=== PATIENT | male | born 1965 | race Caucasian/White ===

== ENCOUNTER 2024-03-02 12:06 | Emergency (ER) | payer OTHER ==
[2024-03-02 13:00] VITALS: TEMP 98.1
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
[2024-03-02] MEDS: LORazepam 2 MG/ML INJ IV STA (13:36)
[2024-03-02] MEDS: ONDANSETRON 4 MG/2 ML VIAL IVP STA (13:41)
[2024-03-02] MEDS: SODIUM CHLORIDE 0.9% 1,000 ML IV STA (13:43)
[2024-03-02 13:52] LABS: Basophils % (A) 0 %; Eosinophils # (A) 0.1 k/uL (0-0.7); Eosinophils % (A) 2 %; HCT 52.1 % (39.0-53.0); HGB 17.2 gm/dL (13.0-17.5); Lymphocytes # (A) 1.3 k/uL (1.0-4.8); Lymphocytes % (A) 20 %; MCHC 32.9 g/dL (31.0-37.0); MCV 91.2 fL (80.0-100.0); Mean Platelet Volume 7.8; Monocytes # (A) 0.3 k/uL (0-1.0); Monocytes % (A) 4 %; Neutrophils # (A) 4.6 k/uL (1.3-7.7); Neutrophils % (A) 71 %; Platelet Count 116 k/uL (150-450); RBC 5.72 m/uL (4.30-5.90); RDW 12.7 % (11.5-15.5); WBC 6.4 k/uL (3.8-10.6)
[2024-03-02 14:01] LABS: African American GFR (CKD) >90 (>60 ml/min/1.73 sqM); Anion Gap 12 mmol/L; Blood Urea Nitrogen 19 mg/dL (9-20); Calcium 9.7 mg/dL (8.4-10.2); Carbon Dioxide 17 mmol/L (22-30); Chloride 107 mmol/L (98-107); Glucose 270 mg/dL (74-99); Non-African American GFR(CKD) >90 (>60 ml/min/1.73 sqM); Sodium 136 mmol/L (137-145)
[2024-03-02 14:03] LABS: Potassium 4.6 mmol/L (3.5-5.1)
[2024-03-02] MEDS: LORazepam 0.5 MG TAB PO STA (15:14)
[2024-03-02 15:15] VITALS: BP 161/84; PULSE 77; RESP 16
== END 2024-03-02 15:28 | disposition home or self-care (01) ==
LOC: EC 12:06
DX: F41.9 Anxiety disorder, unspecified (principal)
CPT/HCPCS: 36415; 80048; 85025; 93005; 96374; 96375; 99283

== ENCOUNTER 2024-08-01 09:15 | Emergency (ER) | payer OTHER ==
[2024-08-01 09:21] VITALS: TEMP 97.3
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
[2024-08-01] MEDS: KETOROLAC 15 MG/ML 1 ML VIAL IVP STA (10:01)
[2024-08-01] MEDS: LORazepam 2 MG/ML INJ IV STA (10:02)
[2024-08-01 11:07] VITALS: BP 159/77; PULSE 65; RESP 20
== END 2024-08-01 11:12 | disposition home or self-care (01) ==
LOC: EC 09:15
DX: F41.9 Anxiety disorder, unspecified (principal)
CPT/HCPCS: 99283; 96374; 96375; J2060; J1885

== ENCOUNTER 2024-08-01 13:09 | Emergency (ER) | payer OTHER ==
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
[2024-08-01] MEDS: LORazepam 2 MG/ML INJ IV STA (15:59)
[2024-08-01] MEDS: ONDANSETRON 4 MG/2 ML VIAL IVP STA (15:59)
[2024-08-01] MEDS: SODIUM CHLORIDE 0.9% 1,000 ML IV STA (15:59)
[2024-08-01 16:09] LABS: Basophils % (A) 0 %; Eosinophils # (A) 0.1 k/uL (0-0.7); Eosinophils % (A) 1 %; HGB 16.9 gm/dL (13.0-17.5); Lymphocytes # (A) 0.9 k/uL (1.0-4.8); Lymphocytes % (A) 15 %; MCH 29.7 pg (25.0-35.0); MCHC 32.5 g/dL (31.0-37.0); MCV 91.5 fL (80.0-100.0); Mean Platelet Volume 8.7; Monocytes # (A) 0.3 k/uL (0-1.0); Monocytes % (A) 4 %; Neutrophils # (A) 4.8 k/uL (1.3-7.7); Neutrophils % (A) 78 %; RBC 5.68 m/uL (4.30-5.90); RDW 12.9 % (11.5-15.5); WBC 6.1 k/uL (3.8-10.6)
[2024-08-01 16:18] LABS: ALT 48 U/L (4-49); AST 32 U/L (17-59); African American GFR (CKD) >90 (>60 ml/min/1.73 sqM); Albumin 4.8 g/dL (3.5-5.0); Alkaline Phosphatase 86 U/L (38-126); Anion Gap 12 mmol/L; Blood Urea Nitrogen 23 mg/dL (9-20); Calcium 9.7 mg/dL (8.4-10.2); Carbon Dioxide 22 mmol/L (22-30); Chloride 103 mmol/L (98-107); Glucose 196 mg/dL (74-99); Non-African American GFR(CKD) >90 (>60 ml/min/1.73 sqM); Potassium 4.3 mmol/L (3.5-5.1); Sodium 137 mmol/L (137-145); Total Bilirubin 1.4 mg/dL (0.2-1.3); Total Protein 7.9 g/dL (6.3-8.2)
[2024-08-01 16:40] VITALS: BP 182/82; PULSE 64; RESP 18; TEMP 97.5
[2024-08-01 16:59] LABS: Platelet Count 95 k/uL (150-450)
== END 2024-08-01 18:02 | disposition home or self-care (01) ==
LOC: EC 13:09
DX: F41.9 Anxiety disorder, unspecified (principal)
CPT/HCPCS: 36415; 93005; 80053; 83605; 83735; 85025; 99284; 96374; 96375; 96361; J2060; J2405

== ENCOUNTER 2024-08-27 09:51 | Emergency (ER) | payer OTHER ==
[2024-08-27 10:00] VITALS: RESP 18; TEMP 97.5
[2024-08-27 10:05] LABS: Glucose,Whole Blood 260 mg/dL (70-110)
[2024-08-27] MEDS: LORazepam 1 MG TAB PO STA (10:27)
[2024-08-27 10:35] LABS: Basophils % (A) 1 %; Eosinophils # (A) 0.2 k/uL (0-0.7); Eosinophils % (A) 3 %; HCT 50.3 % (39.0-53.0); HGB 16.7 gm/dL (13.0-17.5); Lymphocytes # (A) 1.4 k/uL (1.0-4.8); Lymphocytes % (A) 21 %; MCH 30.1 pg (25.0-35.0); MCHC 33.1 g/dL (31.0-37.0); Mean Platelet Volume 8.6; Monocytes # (A) 0.3 k/uL (0-1.0); Monocytes % (A) 4 %; Neutrophils # (A) 4.9 k/uL (1.3-7.7); Neutrophils % (A) 70 %; Platelet Count 126 k/uL (150-450); RBC 5.53 m/uL (4.30-5.90); RDW 13.5 % (11.5-15.5)
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
[2024-08-27 10:46] LABS: ALT 35 U/L (4-49); AST 33 U/L (17-59); African American GFR (CKD) >90 (>60 ml/min/1.73 sqM); Albumin 4.6 g/dL (3.5-5.0); Alkaline Phosphatase 95 U/L (38-126); Anion Gap 14 mmol/L; Blood Urea Nitrogen 16 mg/dL (9-20); Calcium 9.9 mg/dL (8.4-10.2); Carbon Dioxide 19 mmol/L (22-30); Chloride 104 mmol/L (98-107); Glucose 269 mg/dL (74-99); Non-African American GFR(CKD) >90 (>60 ml/min/1.73 sqM); Potassium 4.2 mmol/L (3.5-5.1); Sodium 137 mmol/L (137-145); Total Bilirubin 1.5 mg/dL (0.2-1.3); Total Protein 7.9 g/dL (6.3-8.2)
--- NOTE | 2024-08-27 11:07 | CT ---
EXAMINATION TYPE: CT brain wo con DATE OF EXAM: 08/27/2024 10:47 AM COMPARISON: None. CLINICAL INDICATION: Male, 59 years old with history of Headache, SEVERAL WEEKS OF DIZZINESS, MCGILL, VOM ITING TECHNIQUE: CT of the brain is performed utilizing 3 mm thick sections through the posterior fossa and 3 mm thick sections through the remaining calvarium. Study is performed within 24 hours of arrival to the hospital. Contrast used: mL of , (none if empty) CT DLP: 1112 mGycm, Automated exposure control for dose reduction was used. FINDINGS: No abnormal hyperdensity is present to suggest an acute intracranial hemorrhage. No mass lesion is evident. No acute infarcts are evident. Ventricles and sulci are appropriate for the patient age. Paranasal sinuses and mastoid air cells within the [id number] are clear. IMPRESSION: 1. No acute intracranial process. Follow up MRI can be performed as clinically indicated. [facility], , 08/27/2024 11:04 AM
[2024-08-27 12:23] VITALS: BP 157/90; PULSE 60
== END 2024-08-27 12:23 | disposition home or self-care (01) ==
LOC: EC 09:51
DX: F41.9 Anxiety disorder, unspecified (principal)
CPT/HCPCS: 36415; 70450; 80053; 85025; 99284

== ENCOUNTER 2024-08-30 00:49 | Emergency (ER) | payer OTHER ==
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
[2024-08-30] MEDS: LORazepam 1 MG TAB PO STA (01:20)
[2024-08-30] MEDS: LORazepam 2 MG/ML INJ IM STA (01:20)
[2024-08-30 01:27] VITALS: BP 167/89; PULSE 72; RESP 17; TEMP 97.6
== END 2024-08-30 01:31 | disposition home or self-care (01) ==
LOC: EC 00:49
DX: F41.9 Anxiety disorder, unspecified (principal)
CPT/HCPCS: 99283; 96372; J2060

== ENCOUNTER 2024-09-01 03:02 | Emergency (ER) | payer OTHER ==
[2024-09-01 03:05] VITALS: RESP 18
--- NOTE | 2024-09-01 03:53 | ED ---
General Adult HPI - General Chief complaint: Anxiety Stated complaint: Anxiety Time Seen by Provider: 09/01/24 03:22 Source: patient, RN notes reviewed Mode of arrival: ambulatory Limitations: no limitations - History of Present Illness Initial comments: 59-year-old male presents to the emergency department for evaluation of "anxiety." Patient states that he has a longstanding history of anxiety, around 16 years. He states that he is not currently on any medication. He notes that over the past month his anxiety has been worse and he does not have any medication to help control it at home. He notes that he has episodes of feeling overwhelmed, feeling nauseated. He denies any chest pain, shortness of breath, palpitations. He has been seen here multiple times recently for the same complaints. He states that his symptoms do not differ in any way from anxiety he has experienced in the past. He denies any SI, HI. Denies any known hallucinations or delusions. - Related Data Previous Rx's Medication Instructions Recorded LORazepam [Ativan] 0.5 mg PO BID 3 Days #6 tab 09/01/24 Allergies Allergy/AdvReac Type Severity Reaction Status Date / Time No Known Allergies Allergy Verified 09/03/24 17:50 Review of Systems ROS Statement: Those systems with pertinent positive or pertinent negative responses have been documented in the HPI. ROS Other: All systems not noted in ROS Statement are negative. Past Medical History Past Medical History: Diabetes Mellitus Additional Past Medical History / Comment(s): Type 2 History of Any Multi-Drug Resistant Organisms: None Reported Past Surgical History: No Surgical Hx Reported Past Psychological History: Anxiety Smoking Status: Never smoker Past Alcohol Use History: None Reported Past Drug Use History: None Reported General Exam Limitations: no limitations General appearance: alert, in no apparent distress Head exam: Present: atraumatic, normocephalic, normal inspection Eye exam: Present: normal appearance, PERRL, EOMI. Absent: scleral icterus, conjunctival injection, periorbital swelling ENT exam: Present: normal exam, mucous membranes moist Neck exam: Present: normal inspection. Absent: tenderness, meningismus, lymphadenopathy Respiratory exam: Present: normal lung sounds bilaterally. Absent: respiratory distress, wheezes, rales, rhonchi, stridor Cardiovascular Exam: Present: regular rate, normal rhythm, normal heart sounds. Absent: systolic murmur, diastolic murmur, rubs, gallop, clicks GI/Abdominal exam: Present: soft. Absent: distended, tenderness, guarding, osbaldo ound, rigid Extremities exam: Present: normal inspection, full ROM, normal capillary refill. Absent: tenderness, pedal edema, joint swelling, calf tenderness Neurological exam: Present: alert, oriented X3 Psychiatric exam: Present: normal affect, normal mood Skin exam: Present: warm, dry, intact, normal color. Absent: rash Course Vital Signs 09/01/24 09/01/24 03:04 04:17 Temperature 98.2 F 98.8 F Pulse Rate 70 60 Respiratory 18 18 Rate Blood Pressure 170/108 166/87 O2 Sat by Pulse 98 96 Oximetry Medical Decision Making - Medical Decision Making Was pt. sent in by a medical professional or institution ([facility] Pe[facility], TRANSFORMER MOLDER, urgent care, hospital, or alf...) When possible be specific @ -No Did you speak to anyone other than the patient for history (EMS, parent, family, police, friend...)? What history was obtained from this source @ -No Did you review nursing and triage notes (agree or disagree)? Why? @ -I reviewed and agree with nursing and triage notes Were old charts reviewed (outside hosp., previous admission, EMS record, old EKG, old radiological studies, urgent care reports/EKG's, alf records)? Report findings @ -I reviewed recent laboratory studies of the patient have performed when he was here for similar symptoms Differential Diagnosis (chest pain, altered mental status, abdominal pain women, abdominal pain men, vaginal bleeding, weakness, fever, dyspnea, syncope, headache, dizziness, GI bleed, back pain, seizure, CVA, palpatations, mental health, musculoskeletal)? @ -Differential Mental Health Depression, anxiety, bipolar, psychosis, schizophrenia, borderline personality, situational depression, adjustment disorder, behavioral disorder, brain tumor, malingering, substance abuse, encephalopathy, medication reaction, dementia, hypothyroidism, degenerative neurologic disorder, lupus.... This is not meant to be all-inclusive list EKG interpreted by me (3pts min.). @ -None X-rays interpreted by me (1pt min.). @ -None done CT interpreted by me (1pt min.). @ -None done U/S interpreted by me (1pt. min.). @ -None done What testing was considered but not performed or refused? (CT, X-rays, U/S, labs)? Why? @ -None What meds were considered but not given or refused? Why? @ -None Did you discuss the management of the patient with other professionals (professionals i.e. , PA, TRANSFORMER MOLDER, lab, RT, psych nurse, aids social worker, sales stock associate, teacher, house officer, catalytic case operator)? Give summary @ -No Was smoking cessation discussed for >3mins.? @ -No Was critical care preformed (if so, how long)? @ -No Were there social determinants of health that impacted care today? How? (Homelessness, low income, unemployed, alcoholism, drug addiction, transportation, low edu. Level, literacy, decrease access to med. care, [facility], rehab)? @ -No Was there de-escalation of care discussed even if they declined (Discuss DNR or withdrawal of care, Hospice)? DNR status @ -No What co-morbidities impacted this encounter? (DM, HTN, Smoking, COPD, CAD, Cancer, CVA, ARF, Chemo, Hep., AIDS, mental health diagnosis, sleep apnea, morbid obesity)? @ -None Was patient admitted / discharged? Hospital course, mention meds given and route, prescriptions, significant lab abnormalities, going to OR and other pertinent info. @ -Discharge. Patient presented to emergency department for "anxiety." Patient reports a history and states that his symptoms are the same as he typically experiences. He was hoping to get relief from symptoms. He was provided medication in the emergency department to help with symptoms of anxiety. He did have improvement with this. He will be discharged home advised follow-up to primary care provider. He is understand agreeable discharge plan. Patient stable at time of discharge. Case discussed with Dr. Burnett. Undiagnosed new problem with uncertain prognosis? @ -No Drug Therapy requiring intensive monitoring for toxicity (Heparin, Nitro, Insulin, Cardizem)? @ -No Were any procedures done? @ -No Diagnosis/symptom? @ -Anxiety Acute, or Chronic, or Acute on Chronic? @ -Acute on chronic Uncomplicated (without systemic symptoms) or Complicated (systemic symptoms)? @ -Uncomplicated Side effects of treatment? @ -No Exacerbation, Progression, or Severe Exacerbation? @ -No Poses a threat to life or bodily function? How? (Chest pain, USA, [place], pneumonia, PE, COPD, DKA, ARF, appy, cholecystitis, CVA, Diverticulitis, Homicidal, Suicidal, threat to staff... and all critical care pts) @ -No Disposition Clinical Impression: Anxiety Disposition: HOME SELF-CARE Condition: Stable Instructions (If sedation given, give patient instructions): Anxiety (ED) Additional Instructions: Please follow-up with your doctor. Return to the emergency department for new or worsening symptoms. Prescriptions: LORazepam [Ativan] 0.5 mg PO BID 3 Days #6 tab Is patient prescribed a controlled substance at d/c from ED?: No Referrals: None,Stated [Primary Care Provider] - 1-2 days
[2024-09-01 04:21] VITALS: BP 166/87; PULSE 60; TEMP 98.8
[2024-09-01] MEDS: LORazepam 2 MG/ML INJ IM STA (04:24)
== END 2024-09-01 04:46 | disposition home or self-care (01) ==
LOC: EC 03:02
DX: F41.9 Anxiety disorder, unspecified (principal)
CPT/HCPCS: 99283; 96372; J2060

== ENCOUNTER 2024-09-03 16:42 | Inpatient (IN) | payer OTHER ==
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
[2024-09-03] MEDS: ACETAMINOPHEN TAB 325 MG TAB PO STA (19:49)
[2024-09-03] MEDS: LORazepam 1 MG TAB PO STA (19:49)
[2024-09-03 21:05] LABS: Glucose,Whole Blood 240 mg/dL (70-110)
[2024-09-03] MEDS ORDERED: MAGNESIUM HYDROXIDE 2,400 MG/30 ML CUP PO PRN (21:26)
[2024-09-03] MEDS ORDERED: MAG HYDROX/AL HYDROX/SIMETH 355 ML BOTTLE PO PRN (21:26)
[2024-09-03] MEDS ORDERED: hydrOXYzine HCL 25 MG TAB PO PRN (21:28)
[2024-09-03] MEDS ORDERED: DEXTROSE 50% SYRINGE 50 ML IVP PRN ×2 (21:37)
[2024-09-03] MEDS ORDERED: hydrOXYzine HCL 50 MG/ML 1 ML VIAL IM PRN (22:00)
[2024-09-04 07:47] LABS: Glucose,Whole Blood 160 mg/dL (70-110)
[2024-09-04 08:26] LABS: Basophils # (A) 0.02 10*3/uL (0.00-0.10); Basophils % (A) 0.3 %; Eosinophils # (A) 0.18 10*3/uL (0.04-0.35); Eosinophils % (A) 2.7 %; HCT 47.5 % (39.6-50.0); HGB 16.7 g/dL (13.0-17.0); Immature Platelet Fraction 4.2 % (1.1-6.1); Lymphocytes # (A) 1.63 10*3/uL (0.90-5.00); Lymphocytes % (A) 24.1 %; MCHC 35.2 g/dL (32.0-37.0); MCV 88.3 fL (80.0-97.0); Mean Platelet Volume 10.7 fL (9.5-12.2); Monocytes # (A) 0.33 10*3/uL (0.20-1.00); Monocytes % (A) 4.9 %; Neutrophils # (A) 4.58 10*3/uL (1.80-7.70); Neutrophils % (A) 67.9 %; Platelet Count 104 10*3/uL (140-440); RBC 5.38 10*6/uL (4.40-5.60); WBC 6.75 10*3/uL (4.50-10.00)
[2024-09-04 08:37] LABS: ALT 32 U/L (4-49); AST 29 U/L (17-59); African American GFR (CKD) >90 (>60 ml/min/1.73 sqM); Albumin 4.5 g/dL (3.5-5.0); Alkaline Phosphatase 65 U/L (38-126); Anion Gap 6 mmol/L; Blood Urea Nitrogen 18 mg/dL (9-20); Calcium 9.7 mg/dL (8.4-10.2); Carbon Dioxide 30 mmol/L (22-30); Chloride 101 mmol/L (98-107); Glucose 164 mg/dL (74-99); Non-African American GFR(CKD) >90 (>60 ml/min/1.73 sqM); Potassium 4.2 mmol/L (3.5-5.1); Sodium 137 mmol/L (137-145); Total Bilirubin 1.8 mg/dL (0.2-1.3); Total Protein 7.5 g/dL (6.3-8.2)
[2024-09-04] MEDS: INSULIN LISPRO (HumaLOG) 100 UNIT/ML 10 mL VL SQ SCH (08:55)
[2024-09-04] MEDS: ACETAMINOPHEN TAB 325 MG TAB PO PRN (08:56)
[2024-09-04] MEDS: SERTRALINE 50 MG TAB PO SCH (12:21)
[2024-09-04 12:38] LABS: Glucose,Whole Blood 179 mg/dL (70-110)
[2024-09-04 12:59] LABS: Appearance,Urine Clear (Clear); Bilirubin,Urine Negative (Negative); Blood,Urine Negative (Negative); Color,Urine Yellow; Glucose,Urine (UA) 4+ (Negative); Ketones,Urine Negative (Negative); Leukocyte Esterase,Urine Negative (Negative); Nitrite,Urine Negative (Negative); PH, Urine 5.5 (5.0-8.0); Protein,Urine Negative (Negative); Specific Gravity,Urine 1.032 (1.001-1.035)
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
[2024-09-04] MEDS: hydrOXYzine pamoate 25 MG CAP PO SCH (15:20)
[2024-09-04] MEDS: IBUPROFEN 600 MG TAB PO PRN (15:20)
[2024-09-04 17:58] LABS: Glucose,Whole Blood 155 mg/dL (70-110)
[2024-09-04 20:01] LABS: Glucose,Whole Blood 204 mg/dL (70-110)
[2024-09-04] MEDS: traZODone HCL 50 MG TAB PO SCH (21:15)
[2024-09-04 21:38] LABS: Urine Alcohol Negative (Negative); Urine Barbiturate Negative (Negative); Urine Cocaine Negative (Negative); Urine Methadone Negative (Negative); Urine Opiates Negative (Negative); Urine Phencyclidine Negative (Negative)
[2024-09-05 07:51] LABS: Glucose,Whole Blood 145 mg/dL (70-110)
[2024-09-05] MEDS: SERTRALINE 50 MG TAB PO ONE (09:56)
--- NOTE | 2024-09-05 12:05 | P.PN ---
Progress Note - Text Progress Note Date: 09/05/24 Interval History: Patient was seen wandering the hallways and was directable and agreeable to marlene wilder with mortgage loan underwriter in the office. He reports having a migraine that has lessened in severity however still persistent which she states is chronic. He reports high anxiety, rating this an 8/10 in severity. He reports some sleep difficulties overnight due to peer yelling in the [place]parza. He states having no insurance as Medicaid denied him due to him working full-time and him not wanting to sign up for his jobs insurance given the decrease in pay that happens when he has insurance that he is unable to accommodate. He reports some difficulties at home with his significant other who abuses alcohol. He inquires about FMLA and this was encouraged to be discussed to his outpatient provider. At this time patient denies any suicidal or homicidal ideations, intent or plan. Patient denies any auditory, visual hallucinations and denies any paranoia or delusions. Patient denies any side effects from the medications and has been compliant with meds. Mental Status Exam: General Appearance: Patient appears to be stated age is alert, directable, and cooperative. He has fair grooming and hygiene Behavior: Patient is calmly seated without any agitated behavior. Speech: Patient's speech is fluent and nonpressured. Mood/Affect: Mood is "anxious", affect is congruent and blunted but reactive. Suicidality/Homicidality: Patient denies having any suicidal or homicidal ideation intent or plan. Perceptions: Patient denies any visual hallucinations and denies any auditory hallucinations Though content/process: There is no evidence of any delusional thought content and thought process is linear and goal-directed. Memory and concentration: AOX3, grossly intact for the purposes of this session Judgment and insight: Improving mildly Assessment Major depressive disorder, recurrent, moderate with anxious distress Plan: -Patient continues to meet criteria for inpatient psychiatric admission for symptom stabilization and safety. Patient has signed adult voluntary form and medication consent and was placed in patient's chart. -Medications: Increase Zoloft to 100 mg daily today for depression/anxiety, increase Vistaril to 50 mg 3 times daily for anxiety, continue trazodone 50 mg at bedtime for insomnia -When necessary hydroxyzine for agitation/aggression. -Labs: Reviewed -SW on board for discharge planning. Encouraged the patient to participate in milieu. Anticipate discharge back home with anant in 2 days pending optimization of medications
[2024-09-05 12:48] LABS: Glucose,Whole Blood 160 mg/dL (70-110)
[2024-09-05 14:17] VITALS: BMI 24.7
[2024-09-05] MEDS: hydrOXYzine pamoate 25 MG CAP PO SCH (16:00)
[2024-09-05 17:45] LABS: Glucose,Whole Blood 119 mg/dL (70-110)
[2024-09-05 20:15] LABS: Glucose,Whole Blood 228 mg/dL (70-110)
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
[2024-09-06 07:35] LABS: HCT 45.9 % (39.6-50.0); HGB 15.9 g/dL (13.0-17.0); Immature Platelet Fraction 4.2 % (1.1-6.1); MCH 31.1 pg (27.0-32.0); MCHC 34.6 g/dL (32.0-37.0); MCV 89.8 fL (80.0-97.0); Mean Platelet Volume 10.7 fL (9.5-12.2); Platelet Count 105 10*3/uL (140-440); RBC 5.11 10*6/uL (4.40-5.60); RDW 12.8 % (11.5-14.5); WBC 5.16 10*3/uL (4.50-10.00)
[2024-09-06 07:37] LABS: Glucose,Whole Blood 142 mg/dL (70-110)
[2024-09-06 07:53] LABS: ALT 32 U/L (4-49); AST 27 U/L (17-59); African American GFR (CKD) >90 (>60 ml/min/1.73 sqM); Albumin 4.2 g/dL (3.5-5.0); Alkaline Phosphatase 60 U/L (38-126); Anion Gap 3 mmol/L; Blood Urea Nitrogen 21 mg/dL (9-20); Calcium 9.6 mg/dL (8.4-10.2); Carbon Dioxide 32 mmol/L (22-30); Chloride 103 mmol/L (98-107); Glucose 132 mg/dL (74-99); Non-African American GFR(CKD) >90 (>60 ml/min/1.73 sqM); Potassium 4.1 mmol/L (3.5-5.1); Sodium 138 mmol/L (137-145); Total Bilirubin 1.5 mg/dL (0.2-1.3); Total Protein 7.1 g/dL (6.3-8.2)
[2024-09-06] MEDS: SERTRALINE 100 MG TAB PO SCH (10:28)
[2024-09-06] MEDS: INSULIN GLARGINE (LANTUS) 100 UNIT/ML SYR SQ SCH (10:28)
[2024-09-06] MEDS: INSULIN LISPRO (HumaLOG) 100 UNIT/ML 10 mL VL SQ SCH (10:31)
[2024-09-06 10:32] VITALS: RESP 16
[2024-09-06 12:37] LABS: Glucose,Whole Blood 151 mg/dL (70-110)
--- NOTE | 2024-09-06 12:52 | P.PN ---
Progress Note - Text Progress Note Date: 09/06/24 Interval History: Patient was seen wandering the hallways and was directable and agreeable to sp meño with global technical writer in the office. He mentions his anxiety is better, denying any thus far today with mild anxiety noted yesterday. He reports some sleep difficulties overnight. He continues to express difficulty with his fiance, stated that she needs help for her substance use and patient was encouraged to establish boundaries with her. He inquires about FMLA, stating that he is not getting paid at his job for being admitted which puts a damper in his paycheck. At this time patient denies any suicidal or homicidal ideations, intent or plan. Patient denies any auditory, visual hallucinations and denies any paranoia or delusions. Patient denies any side effects from the medications and has been compliant with meds. Mental Status Exam: General Appearance: Patient appears to be stated age is alert, directable, and cooperative. Behavior: Patient is calmly seated without any agitated behavior. Speech: Patient's speech is fluent and nonpressured. Mood/Affect: Mood is improving mildly, affect is congruent and reactive. Suicidality/Homicidality: Patient denies having any suicidal or homicidal ideation intent or plan. Perceptions: Patient denies any visual hallucinations and denies any auditory hallucinations Though content/process: There is no evidence of any delusional thought content and thought process is linear and goal-directed. Memory and concentration: AOX3, grossly intact for the purposes of this session Judgment and insight: Improving mildly Assessment Major depressive disorder, recurrent, moderate with anxious distress Plan: -Patient continues to meet criteria for inpatient psychiatric admission for symptom stabilization and safety. Patient has signed adult voluntary form and medication consent and was placed in patient's chart. -Medications: Continue Zoloft 100 mg daily for depression/anxiety, Vistaril 50 mg 3 times daily for anxiety, increase trazodone to 100 mg at bedtime for insomnia -When necessary hydroxyzine for agitation/aggression. -Labs: Reviewed -SW on board for discharge planning. Encouraged the patient to participate in milieu. Anticipate discharge back home with anant tomorrow
[2024-09-06 17:52] LABS: Glucose,Whole Blood 134 mg/dL (70-110)
[2024-09-06 20:00] LABS: Glucose,Whole Blood 219 mg/dL (70-110)
[2024-09-06] MEDS: traZODone HCL 100 MG TAB PO SCH (21:32)
[2024-09-07 00:31] VITALS: BP 124/82; PULSE 80; TEMP 98
[2024-09-07 07:47] LABS: Glucose,Whole Blood 154 mg/dL (70-110)
[2024-09-07 12:25] LABS: Glucose,Whole Blood 116 mg/dL (70-110)
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
== END 2024-09-07 13:30 | disposition home or self-care (01) | DRG 885 ==
LOC: EC 16:42 → 3MHU 21:11
PROVIDERS: ADMIT Psychiatry & Neurology Psychiatry; ATTEND Psychiatry & Neurology Psychiatry
DX: F33.1 Major depressive disorder, recurrent, moderate (principal); R45.851 Suicidal ideations; E11.9 Type 2 diabetes mellitus without complications; G43.909 Migraine, unspecified, not intractable, without status migrainosus; F41.9 Anxiety disorder, unspecified; K59.00 Constipation, unspecified; G47.00 Insomnia, unspecified; Z59.71 Insufficient health insurance coverage; Z59.86 Financial insecurity; Z56.6 Other physical and mental strain related to work; Z79.84 Long term (current) use of oral hypoglycemic drugs; Z79.899 Other long term (current) drug therapy; Z91.51 Personal history of suicidal behavior
CPT/HCPCS: 36415; 80053; 80306; 81003; 83036; 84443; 85025; 85027; 87635; 99285